=== PATIENT | male | born 1950 | race Caucasian/White ===

== ENCOUNTER 2018-01-26 11:49 | Observation (INO) ==
[2018-01-26] MEDS ORDERED: *HR* FentaNYL (PF) 100 MCG/2 ML VIAL IVP ONE ×2 (12:04→15:54)
--- NOTE | 2018-01-26 12:07 | Emergency Department Note ---
Disposition Clinical Impression: Hip dislocation, left Qualifiers: Encounter type: initial encounter Qualified Code(s): S73.005A - Unspecified dislocation of left hip, initial encounter Disposition: Admitted As Inpatient Condition: Fair Time of Disposition: 14:55 Fall HPI - General Chief Complaint: ED Fall Stated Complaint: L hip pain s/p fall Time Seen by Provider: 01/26/18 11:50 Source: patient, EMS Mode of arrival: EMS Limitations: no limitations Nursing Notes Reviewed: Yes Vital Signs Reviewed: Yes - History of Present Illness HPI Narrative: 67-year-old male presents for evaluation of left hip pain status post fall. Patient appeared to have mechanical fall prior to arrival. Patient describes the fall as he was lifting a heavy concrete block. Patient then states that he landed on his abdomen. Complaining of lateral left hip pain. Pain is worse with movement. Patient states he has had a history of dislocations the left hip in the past. Patient does have a prosthesis in the left hip does placed approximately 7 years ago in [place]. Denies any head injury or loss of conscious. Denies being on any anticoagulation. No chest pain or shortness of breath. No back pain or neck pain. No numbness or tingling of the extremities. - Related Data Home Medications Medication Instructions Recorded Confirmed Aspirin [Adult Aspirin] 81 mg PO DAILY 01/26/18 01/26/18 Atorvastatin [Lipitor] 40 mg PO HS 01/26/18 01/26/18 Glimepiride [Amaryl] 4 mg PO DAILY 01/26/18 01/26/18 Lisinopril [Zestril] 20 mg PO DAILY 01/26/18 01/26/18 Metformin HCl [Glucophage] 1,000 mg PO BID 01/26/18 01/26/18 Selenium 200 mcg PO DAILY 01/26/18 01/26/18 Semaglutide [Ozempic] 0.25 mg SQ QWEEK 01/26/18 01/26/18 Timolol Maleate 0.5% [Timolol 1 drop OP BID 01/26/18 01/26/18 Maleate 0.5%] Allergies Allergy/AdvReac Type Severity Reaction Status Date / Time No Known Allergies Allergy Verified 01/26/18 12:02 All systems ED: reviewed and negative except as stated. Constitutional: Denies: fever Cardiovascular: Denies: chest pain Respiratory: Denies: cough Gastrointestinal: Denies: abdominal pain, nausea, vomiting Musculoskeletal: Denies: back pain, neck pain Fall PMH - Past Medical History Medical history: Reports: asthma, diabetes, hyperlipidemia, hypertension Surgical history: Reports: herniorrhaphy, hip replacement Psychiatric history: Reports: no psych history - Social History Smoking Status: Never smoker Alcohol use: Reports: none Drug use: Reports: none Physical Exam - General Limitations: no limitations General appearance: alert, in no apparent distress, obese - Head Head exam: atraumatic, normocephalic, normal inspection - Eye Eye exam: Present: normal appearance, EOMI - ENT ENT exam: normal exam, mucous membranes moist - Neck Neck exam: Present: normal inspection, trachea midline - Chest Chest inspection: Present: normal inspection, symmetric chest wall rise - Respiratory Respiratory exam: Present: normal lung sounds bilaterally. Absent: respiratory distress - Cardiovascular Cardiovascular exam: Present: regular rate, normal rhythm. Absent: systolic murmur - Abdominal Exam Abdominal exam: Present: soft, Non-Tender - Extremities Exam Extremities exam: Present: normal inspection. Absent: pedal edema - Expanded Lower Extremity Exam Hip/Pelvis exam: Present: normal inspection, tenderness (Left lateral). Absent : full ROM Upper leg exam: Present: normal inspection, full ROM. Absent: tenderness Knee exam: Present: normal inspection, full ROM. Absent: tenderness Lower leg exam: Present: normal inspection, full ROM. Absent: tenderness Ankle exam: Present: normal inspection Neurovascular/Tendon exam: Present: normal capillary refill. Absent: pulse deficit, motor deficit, sensory deficit - Neurological Exam Neurological exam: Present: alert, oriented X3, CN II-XII intact Course Course Narrative: Patient will get imaging of left hip. Symptomatic treatment with pain medications. Disposition pending. - Consultations Consultation #1: Discussed the case with Dr. Ortega who recommended admission to the hospital service with orthopedic consult. Time: 14:40 Vital Signs Temperature 97.7 F 01/26/18 11:58 Pulse Rate 59 01/26/18 11:58 Respiratory Rate 16 01/26/18 11:58 Blood Pressure 121/74 01/26/18 11:58 O2 Sat by Pulse Oximetry 100 01/26/18 11:58 Temperature 97.7 F 01/26/18 11:58 Pulse Rate 57 01/26/18 15:45 Respiratory Rate 16 01/26/18 15:45 Blood Pressure 135/90 01/26/18 15:45 O2 Sat by Pulse Oximetry 100 01/26/18 15:45 Oxygen Delivery Oxygen Delivery [] Nasal Cannula Oxygen Delivery [] Nasal Cannula Oxygen Delivery [] Nasal Cannula Oxygen Delivery [] Nasal Cannula Oxygen Delivery [] Nasal Cannula Oxygen Delivery [] Nasal Cannula Oxygen Delivery [] Nasal Cannula Oxygen Delivery Room Air Procedures - Orthopedic Joint Reduction Joint #1 Consent Obtained: verbal consent, written consent Time Out Performed: Yes Side: left Joint Reduction Location: hip ASA Classification: CLASS III-Severe systemic disease Analgesia: procedural sedation Amount of anesthesic used (mL): 200 Shoulder Technique Used (if applicable): traction/counter-traction Technique used: traction/counter-traction Post-reduction neuro exam: intact Post-reduction vascular: intact Post Reduction X-Ray Obtained: Yes Post Reduction X-Ray Results: not reduced Splint Applied: Yes Patient Tolerated Procedure: well - Procedural Sedation Indication: fracture/dislocation reduction Dietary Status: NPO after Midnight H&P (including ROS) documented in medical record: Yes Previous reaction to sedatives/anesthetics: Yes; explain in comment Dentition: No loose teeth or bridges Airway Assessment: Patient can open mouth completely, TMJ function normal ASA Classification: CLASS III-Severe systemic disease Plan of Care: Pt appropriate candidate for procedure/moderate/conscious sedation , Risks/benefits of procedure/sedation discussed w/ patient/family Preparation: cardiac rehabilitation specialist applied, pulse oximeter, capnometry used, supplemental O2 applied Fentanyl Dose: 100 IV Propofol Dose (mgs): 200 Patient Tolerated Procedure: well Complications: hypoxia Interventions: oxygen applied, airway repositioned Fall - [facility] Narrative Medical decision making narrative: Patient seen and examined. Patient had unsuccessful reduction the left hip. Procedural sedation was adequately obtained in the ED. Multiple attempts were tried and was unsuccessful. Discussed the case with orthopedics who will admit the patient to the hospitalist service with consult. Patient is agreeable this plan of care. Patient was neurovascularly intact following attempted reductions. - Lab Data Lab results reviewed: Yes I reviewed the patient's lab results. Result diagrams: 01/26/18 14:55 01/26/18 14:55 Lab Results 01/26/18 01/26/18 Range/Units 14:55 14:55 WBC 8.9 (4.3-11.1) K/mcL RBC 4.21 (4.19-5.50) M/mcL Hgb 13.2 (12.9-16.9) g/dL Hct 39.8 (37.5-50.1) % MCV 94.5 (83.0-100.0) fL MCH 31.4 (28.0-33.3) pg MCHC 33.2 (31.6-35.5) g/dL RDW 12.7 (11.5-14.5) % Plt Count 217 (140-400) K/mcL MPV 11.2 (9.4-12.4) fL Immature Gran % 0.3 (0-4) % Seg Neutrophils % 70.2 % Lymphocytes % 18.4 % Monocytes % 8.2 % Eosinophils % 2.7 % Basophils % 0.2 % Neutrophils # 6.2 (1.6-8.9) K/mcL Lymphocytes # 1.6 (0.6-4.6) K/mcL Monocytes # 0.7 (0.0-1.3) K/mcL Eosinophils # 0.2 (0.0-0.6) K/mcL Basophils # 0.0 (0.0-0.2) K/mcL Sodium 140 (136-145) mEq/L Potassium 3.7 (3.5-5.1) mEq/L Chloride 108 H (98-107) mEq/L Carbon Dioxide 29 (23-29) mEq/L BUN 10 (8-23) mg/dL Creatinine 0.71 (0.70-1.30) mg/dL Est GFR ( Amer) > 60 (> 60) Est GFR (Non-Af Amer) > 60 (> 60) BUN/Creatinine Ratio 14 (6-26) Glucose 120 H (70-105) mg/dL Calculated Osmolality 290 (280-300) Calcium 8.8 (8.6-10.3) mg/dL - Radiology Data Radiology results reviewed: Yes I reviewed the patient's radiology results. Hip X-Ray 01/26/18 14:22 IMPRESSION: The position of the femoral head component is stable which appears to be dislocated. RECOMMENDATIONS: Unsuccessful reduction. D/ / Zeyad Hassan MD / Zeyad Hassan MD Interpreting Provider: Zeyad Hassan MD - EKG Data EKG attestation: Yes I reviewed and interpreted this EKG. EKG shows normal: sinus rhythm Rate: normal Rhythm: NSR Drummonds/QRS: normal Interpretation: no acute changes, nonspecific ST-T wave changes Juan - Juan Situation: Demographics Background: Presenting Complaint Assessment: Vital Signs, Course and respsone to treatment, Patient/Family Expectation Recommendation: Barrier(s) to disposition, Recommendation based on pending studies, treatments, or consults S.B.ANery Report Given to: Dr. Benton Martinez Repor Time: 14:56
--- NOTE | 2018-01-26 12:12 | Emergency Department Note ---
Disposition Clinical Impression: Hip dislocation, left Qualifiers: Encounter type: initial encounter Qualified Code(s): S73.005A - Unspecified dislocation of left hip, initial encounter Disposition: Admitted As Inpatient Condition: Fair General Adult HPI - General Chief complaint: ED Fall Stated complaint: L hip pain s/p fall Time Seen by Provider: 01/26/18 11:50 Source: patient, EMS Mode of arrival: EMS Limitations: no limitations - History of Present Illness Pain Scale: 2 - Related Data Home Medications Medication Instructions Recorded Confirmed Aspirin [Adult Aspirin] 81 mg PO DAILY 01/26/18 01/26/18 Atorvastatin [Lipitor] 40 mg PO HS 01/26/18 01/26/18 Glimepiride [Amaryl] 4 mg PO DAILY 01/26/18 01/26/18 Lisinopril [Zestril] 20 mg PO DAILY 01/26/18 01/26/18 Metformin HCl [Glucophage] 1,000 mg PO BID 01/26/18 01/26/18 Selenium 200 mcg PO DAILY 01/26/18 01/26/18 Semaglutide [Ozempic] 0.25 mg SQ QWEEK 01/26/18 01/26/18 Timolol Maleate 0.5% [Timolol 1 drop OP BID 01/26/18 01/26/18 Maleate 0.5%] Allergies Allergy/AdvReac Type Severity Reaction Status Date / Time No Known Allergies Allergy Verified 01/26/18 12:02 Constitutional: Denies: fever Cardiovascular: Denies: chest pain Respiratory: Denies: cough Gastrointestinal: Denies: abdominal pain, nausea, vomiting Musculoskeletal: Denies: back pain, neck pain Past Medical History - Past Medical History Medical history: Reports: asthma, diabetes, hyperlipidemia, hypertension Surgical history: Reports: herniorrhaphy, hip replacement Psychiatric history: Reports: no psych history - Social History Smoking Status: Never smoker Smokeless Tobacco Status: No Alcohol use: Reports: none Drug use: Reports: none Physical Exam - General Limitations: no limitations General appearance: alert, in no apparent distress, obese Course Vital Signs Temperature 97.7 F 01/26/18 11:58 Pulse Rate 59 01/26/18 11:58 Respiratory Rate 16 01/26/18 11:58 Blood Pressure 121/74 01/26/18 11:58 O2 Sat by Pulse Oximetry 100 01/26/18 11:58 Temperature 97.7 F 01/26/18 17:44 Pulse Rate 56 01/26/18 17:44 Respiratory Rate 18 01/26/18 17:44 Blood Pressure 182/80 01/26/18 17:44 O2 Sat by Pulse Oximetry 92 01/26/18 17:44 Oxygen Delivery Oxygen Delivery [1426] Nasal Cannula Oxygen Delivery [1421] Nasal Cannula Oxygen Delivery [1416] Nasal Cannula Oxygen Delivery [1411] Nasal Cannula Oxygen Delivery [1406] Nasal Cannula Oxygen Delivery [1401] Nasal Cannula Oxygen Delivery [1357] Nasal Cannula Oxygen Delivery Room Air Medical Decision Making - Lab Data Result diagrams: 01/26/18 14:55 01/26/18 14:55 Lab Results 01/26/18 01/26/18 Range/Units 14:55 14:55 WBC 8.9 (4.3-11.1) K/mcL RBC 4.21 (4.19-5.50) M/mcL Hgb 13.2 (12.9-16.9) g/dL Hct 39.8 (37.5-50.1) % MCV 94.5 (83.0-100.0) fL MCH 31.4 (28.0-33.3) pg MCHC 33.2 (31.6-35.5) g/dL RDW 12.7 (11.5-14.5) % Plt Count 217 (140-400) K/mcL MPV 11.2 (9.4-12.4) fL Immature Gran % 0.3 (0-4) % Seg Neutrophils % 70.2 % Lymphocytes % 18.4 % Monocytes % 8.2 % Eosinophils % 2.7 % Basophils % 0.2 % Neutrophils # 6.2 (1.6-8.9) K/mcL Lymphocytes # 1.6 (0.6-4.6) K/mcL Monocytes # 0.7 (0.0-1.3) K/mcL Eosinophils # 0.2 (0.0-0.6) K/mcL Basophils # 0.0 (0.0-0.2) K/mcL Sodium 140 (136-145) mEq/L Potassium 3.7 (3.5-5.1) mEq/L Chloride 108 H (98-107) mEq/L Carbon Dioxide 29 (23-29) mEq/L BUN 10 (8-23) mg/dL Creatinine 0.71 (0.70-1.30) mg/dL Est GFR ( Amer) > 60 (> 60) Est GFR (Non-Af Amer) > 60 (> 60) BUN/Creatinine Ratio 14 (6-26) Glucose 120 H (70-105) mg/dL Calculated Osmolality 290 (280-300) Calcium 8.8 (8.6-10.3) mg/dL Attestation Statement - Attestation Attestation: I examined this patient and my medical decision-making was reviewed with the Resident Physician. I agree with the documented findings, disposition and treatment plan as described except to the extent set forth below. Patient to the ED with left hip pain. Patient had a mechanical fall after trying to lift some concrete block. Denies being dizzy or syncopal. States he had a prior hip replacement and his dislocated once in the past. On exam is laying on his right side. Pain with movement of the left hip. The leg does not appear shortened. Plan. Imaging pain control. Unsuccessful reduction of the left hip. Attempt 2. No complications. Discussed with orthopedics. Will admit for operative reduction. Hip X-Ray 01/26/18 14:22 IMPRESSION: The position of the femoral head component is stable which appears to be dislocated. RECOMMENDATIONS: Unsuccessful reduction. D/ / 01/26/2018 15:05:10 Zeyad Hassan MD / vinayak Interpreting Provider: Zeyad Hassan MD
[2018-01-26] MEDS ORDERED: *HR* Propofol 500 MG/50 ML BOTTLE IVP ONE (12:42)
[2018-01-26] MEDS ORDERED: 0.9 % Sodium Chloride 1,000 ML IVC ONE (12:43)
[2018-01-26 15:29] LABS: Basophils % 0.2 %; Eosinophils # 0.2 K/mcL (0.0-0.6); Eosinophils % 2.7 %; Hematocrit 39.8 % (37.5-50.1); Hemoglobin 13.2 g/dL (12.9-16.9); Immature Granulocytes % 0.3 % (0-4); Lymphocytes # 1.6 K/mcL (0.6-4.6); Lymphocytes % 18.4 %; Mean Corpuscular HGB Conc 33.2 g/dL (31.6-35.5); Mean Corpuscular Hemoglobin 31.4 pg (28.0-33.3); Mean Corpuscular Volume 94.5 fL (83.0-100.0); Mean Platelet Volume 11.2 fL (9.4-12.4); Monocytes # 0.7 K/mcL (0.0-1.3); Monocytes % 8.2 %; Neutrophils # 6.2 K/mcL (1.6-8.9); Platelet Count 217 K/mcL (140-400); Red Blood Count 4.21 M/mcL (4.19-5.50); Red Cell Distribution Width 12.7 % (11.5-14.5); Segmented Neutrophils % 70.2 %
[2018-01-26 15:46] LABS: BUN/Creatinine Ratio 14 (6-26); Blood Urea Nitrogen 10 mg/dL (8-23); Calcium 8.8 mg/dL (8.6-10.3); Carbon Dioxide 29 mEq/L (23-29); Chloride 108 mEq/L (98-107); Glucose 120 mg/dL (70-105); Osmolality,Calculated 290 (280-300); Potassium 3.7 mEq/L (3.5-5.1); Sodium 140 mEq/L (136-145); eGFR For Non-African Americans > 60 (> 60)
--- NOTE | 2018-01-26 16:41 | Orthopedic Consult Note ---
Date of Encounter: 01/26/18 Time of Encounter: 16:39 Assessment and Plan (1) Hip dislocation, left Current Visit: Yes Status: Acute I did discuss the diagnosis in detail with the patient. The patient does have an anterior hip dislocation on the left. I did discuss treatment options and my recommendation is for closed reduction under a general anesthetic in the operating room. The risks discussed included but were not limited to stiffness , bleeding, infection, blood clots, damage to neurovascular structures, tendons , ligaments, and bone. Also discussed was the risk of continued symptoms and possible need for further procedures. I did discuss the anesthesia risks including stroke, heart attack, and . The patient is aware the risk of possibly needing an open reduction. I did discuss this all with the patient in simple terms and he did wish to proceed and consent was obtained. Postoperatively he will need to follow-up with his primary orthopedist. Qualifiers: Encounter type: initial encounter Qualified Code(s): S73.005A - Unspecified dislocation of left hip, initial encounter History of Present Illness HPI: Mr. Browning is a 67 year old male who was currently admitted to the hospitalist. 7 years ago he had a left total hip arthroplasty by Dr. Benavides at [place] in [facility]. 2 years later he did have a dislocation which was treated with a closed reduction. The patient has not had any issues or prodromal symptoms. He says he was lifting concrete and twisted wrong and felt pain in the left hip. X-rays confirmed a dislocation of the left hip. A closed reduction was attempted in the emergency department which was unsuccessful. He was therefore admitted for closed reduction in the operating room. The patient complains of isolated pain to the left hip and groin which is sharp and achy in nature. No associated numbness, tingling, or other signs or symptoms. Pain is worse with movement of the left thigh and better with rest. No other associated signs or symptoms or modifying factors. Past Med Surg Social Fam HX - Past Medical History Medical history: asthma, diabetes, hyperlipidemia, hypertension Additional medical history: inguinal hernia repair,obesity,reactive airway disease,kidney stones Psychiatric history: no psych history - Past Surgical History Surgical History: herniorrhaphy, hip replacement Additional surgical history: kidney stones,carpal tunnel, bilateral hip replacement - Social History Smoking Status: Never smoker Smokeless Tobacco Status: No Alcohol use: none Drug use: none Medications and Allergies Aspirin [Adult Aspirin] 81 mg PO DAILY 01/26/18 [History] Atorvastatin [Lipitor] 40 mg PO HS 01/26/18 [History] Glimepiride [Amaryl] 4 mg PO DAILY 01/26/18 [History] Lisinopril [Zestril] 20 mg PO DAILY 01/26/18 [History] Metformin HCl [Glucophage] 1,000 mg PO BID 01/26/18 [History] Selenium 200 mcg PO DAILY 01/26/18 [History] Semaglutide [Ozempic] 0.25 mg SQ QWEEK 01/26/18 [History] Timolol Maleate 0.5% [Timolol Maleate 0.5%] 1 drop OP BID 01/26/18 [History] 3 Allergy/AdvReac Type Severity Reaction Status Date / Time No Known Allergies Allergy Verified 01/26/18 12:02 All Systems Reviewed: Constitutional and musculoskeletal systems were reviewed and are negative unless otherwise stated in history of present illness. Physical Exam - Constitutional Vitals: Temp Pulse Resp BP Pulse Ox 97.7 F 57 16 135/90 100 01/26/18 11:58 01/26/18 15:45 01/26/18 15:45 01/26/18 15:45 01/26/18 15:45 Constitutional -Vitals reviewed -The patient is well developed and well nourished. -Mood is pleasant. -The patient is well groomed. Psychiatric -The patient is fully alert and oriented x 3. Respiratory: -Respiratory effort normal Abdomen: -Soft abdomen -Non tender -Non distended: Left upper extremity: -No deformities. The overlying skin is intact. No obvious signs of acute trauma. -No tenderness to palpation throughout. -No significant pain with passive motion of the shoulder, elbow, wrist, and fingers within the limits of the bed. -Able to make an "OK" sign, cross the index and long fingers, and extend the thumb. -Sensation grossly intact to light touch throughout the median, radial, and ulnar distributions. -Radial pulse is present; Fingers have good capillary refill. Right upper extremity: -No deformities. The overlying skin is intact. No obvious signs of acute trauma. -No tenderness to palpation throughout. -No significant pain with passive motion of the shoulder, elbow, wrist, and fingers within the limits of the bed. -Able to make an "OK" sign, cross the index and long fingers, and extend the thumb. -Sensation grossly intact to light touch throughout the median, radial, and ulnar distributions. -Radial pulse is present; Fingers have good capillary refill. Left lower extremity: -The extremity is shortened and externally rotated. The overlying skin is intact. -There is tenderness in the groin region as well as the proximal lateral thigh. -I did not range the hip due to the known fracture. -No tenderness along the distal thigh, leg, ankle, foot, or toes. -Able to dorsiflex and plantarflex the ankle and toes. -Sensation is grossly intact to light touch throughout the sural, saphenous, superficial peroneal, and deep peroneal distributions. -Toes have good capillary refill. Right lower extremity: -No deformities. The overlying skin is intact. No obvious signs of acute trauma. -No tenderness to palpation throughout. -No pain with passive motion of the hip, knee, ankle, and toes within the limits of the bed. -No pain with axial loading of the thigh. -Able to dorsiflex and plantarflex the ankle and toes. -Sensation is grossly intact to light touch throughout the sural, saphenous, superficial peroneal, and deep peroneal distributions. -Toes have good capillary refill. Diagnostic Imaging: I did personally review and interpret x-rays of the left hip which show an anterior dislocation. Results - Labs Result Diagrams: 01/26/18 14:55 01/26/18 14:55 Labs: Abnormal lab results Chloride 108 mEq/L (98-107) H 01/26/18 14:55 Glucose 120 mg/dL (70-105) H 01/26/18 14:55 All other labs normal. Consult Discharge Plan - Plan Referrals: Davina Dwyer, DEAN [Primary Care Provider] -
[2018-01-26] MEDS ORDERED: Naloxone 0.4 MG/ML INJ IVP PRN ×2 (17:08→19:49)
[2018-01-26] MEDS ORDERED: *HR* OxyCODONE/APAP 5/325 TABLET PO PRN ×2 (17:14→19:49)
[2018-01-26] MEDS ORDERED: D5% in Water 1,000 ML IVC PRN ×2 (17:16→19:49)
[2018-01-26] MEDS ORDERED: *HR* Dextrose 50 % in Water (Syg) 50 ML SYRINGE IVP PRN ×2 (17:16→19:49)
[2018-01-26] MEDS ORDERED: Dextrose Gel 15 GM/37.5 ML TUBE PO PRN ×4 (17:16→19:49)
[2018-01-26] MEDS ORDERED: Dexamethasone 4 MG/ML VIAL ONE (17:22)
[2018-01-26] MEDS ORDERED: Ondansetron 4 MG/2 ML VIAL ONE (17:22)
[2018-01-26] MEDS ORDERED: Lidocaine -MPF 2% 2 ML VIAL ONE (17:22)
[2018-01-26] MEDS ORDERED: *HR* Propofol 200 MG/20 ML VIAL IVP ONE (17:22)
--- NOTE | 2018-01-26 17:34 | Anesthesia Evaluation PreOp ---
Date of Encounter: 01/26/18 Time of Encounter: 17:34 - Past History Planned Operation: Closed reduction L-Hip Cardiac History: HTN, Hyperlipidemia Pulmonary History: Asthma Other Medical History: Renal (Hx kidney stones,), Diabetes Type II, Other ( Glaucoma) Anesthesia History: No Prior Anesthetic Complications, Past Anesthesia (L-Total Hip 2011, Inguinal Hernia Repair, CTR, R-Hip replacement) Alcohol Use: none Drug use: none Medications and Allergies Aspirin [Adult Aspirin] 81 mg PO DAILY 01/26/18 [History] Atorvastatin [Lipitor] 40 mg PO HS 01/26/18 [History] Glimepiride [Amaryl] 4 mg PO DAILY 01/26/18 [History] Lisinopril [Zestril] 20 mg PO DAILY 01/26/18 [History] Metformin HCl [Glucophage] 1,000 mg PO BID 01/26/18 [History] Selenium 200 mcg PO DAILY 01/26/18 [History] Semaglutide [Ozempic] 0.25 mg SQ QWEEK 01/26/18 [History] Timolol Maleate 0.5% [Timolol Maleate 0.5%] 1 drop OP BID 01/26/18 [History] 3 Allergy/AdvReac Type Severity Reaction Status Date / Time No Known Allergies Allergy Verified 01/26/18 12:02 - Meds/Allergy Pre-op Review Medications Reviewed: Yes Allergies Reviewed: Yes Beta Blockers on Current Med List: Yes (Timolol ophthalmic) Anesthesia Results - Labs 01/26/18 14:55 01/26/18 14:55 Laboratory Results Impressions Hip X-Ray 01/26/18 14:22 IMPRESSION: The position of the femoral head component is stable which appears to be dislocated. RECOMMENDATIONS: Unsuccessful reduction. D/ / 01/26/2018 15:05:10 Zeyad Hassan MD / vinayak Interpreting Provider: Zeyad Hassan MD Laboratory Tests 11/02/17 01/26/18 16:28 14:55 Est GFR (Non-Af Amer) > 60 Est Mean Plasma Glucose 189 Hemoglobin A1c 8.2 H Calcium 8.8 Anesthesia Exam Vital Signs/O2 Sat/Glucose, Most Current Pulse Pulse Pulse Pulse Pulse Pulse Pulse 01/26/18 15:45 57 09/07/18 15:15 57 01/26/18 14:45 54 01/26/18 14:31 61 01/26/18 13:58 63 49 53 56 59 56 Pulse Resp Resp Resp Resp Resp Resp 01/26/18 15:45 16 01/26/18 15:15 16 01/26/18 14:45 16 01/26/18 14:31 18 01/26/18 13:58 65 18 10 9 10 14 Resp Resp BP BP BP BP BP 01/26/18 15:45 135/90 01/26/18 15:15 147/88 01/26/18 14:45 146/73 01/26/18 14:31 103/83 01/26/18 13:58 16 16 188/86 153/91 173/106 181/104 BP BP Pulse Ox 01/26/18 15:45 100 01/26/18 15:15 99 01/26/18 14:45 100 01/26/18 14:31 100 01/26/18 13:58 163/87 115/91 Height: 5'11" Weight: 290# BMI = 40 NPO (# of Hours): MNOc - HEENT Pupil (Motor): Pupils equal, EOMI Mallampati: III Teeth: Normal Oral Opening: Greater than 3 - BLUEPRINT ENGINEER LOC: Oriented BLUEPRINT ENGINEER Motor: Normal RUE, Normal LUE, Normal RLE, Normal LLE, Normal Face BLUEPRINT ENGINEER Sensory: Normal: RUE, LUE, RLE, LLE, Face - Cardiac Rhythm: Regular Murmur: None - Pulmonary Breath Sounds: bilateral Clear Respiratory Effort: Symmetrical Anesthesia Assess/Plan ASA Score: 3, E Modified Evelyn Scale for Level of Consciousness: Cooperative, oriented, and tranquil Anesthetic Plan: General Monitoring Plan: Standard Monitors Recovery Plan: PACU Anes Supervising Prov Stmt: PT seen/evaluated, R&B Discussed, questions answered and consent obtained. Willie Cardenas MD
--- NOTE | 2018-01-26 17:54 | Internal Med History&Physical ---
<Siddhartha Calles - Last Filed: 01/26/18 18:09> Date of Encounter: 01/26/18 Time of Encounter: 17:00 Internal Medicine - H&P: HPI Chief complaint: L hip pain Admitted From: Emergency Dept Plans for Post Hospital Care: Home History of present illness: Mr. Browning is a 67 year old male who presented to the ED 6 hours ago after sustaining a fall prior to arrival while carrying a concrete block. He denies preceding dizziness, chest pain, shortness of breath, lightheadedness, syncope. Past medical history is significant for type 2 diabetes, HLD, HTN, s/p hip replacement 7 years ago, patient reports due to arthritis of the joint. He states he experienced this before 2 years ago. ECG performed in the ED shows NSR without st elevation/depression. XR hip shows hip dislocation anteriorly. Dr. Sutherland was consulted by the ED with plan for closed reduction under general anesthesia later today. He is not on anticoagulation, he denies shortness of breath or chest pain with exertion or at rest. Past Med Surg Social Fam HX - Past Medical History Medical history: asthma, diabetes, hyperlipidemia, hypertension Additional medical history: inguinal hernia repair,obesity,reactive airway disease,kidney stones Psychiatric history: no psych history - Past Surgical History Surgical History: herniorrhaphy, hip replacement Additional surgical history: kidney stones,carpal tunnel, bilateral hip replacement - Social History Smoking Status: Never smoker Smokeless Tobacco Status: No Alcohol use: none Drug use: none Internal Medicine - H&P: Meds Aspirin [Adult Aspirin] 81 mg PO DAILY 01/26/18 [History] Atorvastatin [Lipitor] 40 mg PO HS 01/26/18 [History] Glimepiride [Amaryl] 4 mg PO DAILY 01/26/18 [History] Lisinopril [Zestril] 20 mg PO DAILY 01/26/18 [History] Metformin HCl [Glucophage] 1,000 mg PO BID 01/26/18 [History] Selenium 200 mcg PO DAILY 01/26/18 [History] Semaglutide [Ozempic] 0.25 mg SQ QWEEK 01/26/18 [History] Timolol Maleate 0.5% [Timolol Maleate 0.5%] 1 drop OP BID 01/26/18 [History] 3 Allergy/AdvReac Type Severity Reaction Status Date / Time No Known Allergies Allergy Verified 01/26/18 12:02 All Systems PM: A 10-system review of systems was performed and is negative for pertinent findings except as documented above in the HPI. - Constitutional Constitutional: no fever(s) - EENT Eyes: no blurry vision Nose, mouth and throat: no neck pain - Cardiovascular Cardiovascular ROS IM: no chest pain, no irregular heart rhythm, no lightheadedness, no palpitations, no syncope - Respiratory Respiratory: no dyspnea on exertion, no wheezing - Gastrointestinal Gastrointestinal: no abdominal pain - Musculoskeletal Musculoskeletal ROS IM: no numbness Additional comments: L hip pain - Neurological Neurological ROS: no confusion, no disequilibrium, no numbness, no vertigo - Psychiatric Psychiatric: no confusion - Constitutional Vitals: Temp Pulse Resp BP Pulse Ox 97.7 F 57 16 135/90 100 01/26/18 11:58 01/26/18 15:45 01/26/18 15:45 01/26/18 15:45 01/26/18 15:45 General appearance: Present: A&O X 3, morbidly obese Exam: . - Head Head exam: Present: atraumatic, normocephalic - Eye Eye exam: Present: EOMI, normal appearance, conjuntiva pink, sclera anicteric - Neck Neck exam general surgery: Present: supple, trachea midline. Absent: lymphadenopathy - Respiratory Respiratory exam: Present: CTAB. Absent: accessory muscle use, rales, rhonchi, wheezes - Cardiovascular Cardiovascular exam: Present: RRR, +S1, +S2. Absent: diastolic murmur, gallop, rubs, systolic murmur - GI/Abdominal GI/Abdominal exam: Present: normal bowel sounds, soft, no peritoneal signs. Absent: distended, tenderness - Extremities Exam Extremities exam: Present: warm, radial pulses palpable and symmetrical. Absent : calf tenderness, cyanotic, pedal edema Additional comments: dorsalis pedis pulses 2/4 bilaterally; normal sensorium of lower extremities, dorsiflex/plantarflexion intact - Neurological Exam Neurological exam: Present: CN II-XII intact, oriented X3, no focal deficits. Absent: pronater drift, facial droop, speech deficit - Skin Skin exam: Present: dry, intact Internal Med - H&P Results - Labs CBC & Chem 7: 01/26/18 14:55 01/26/18 14:55 - Assessment and plan (1) Hip dislocation, left Current Visit: Yes Status: Acute Assessment and plan: Anterior dislocation of L hip as seen on XR L hip on exam is neurovascularly intact, dorsalis pedis pulse 2/4; no cyanosis, no paresthesia, able to move toes/dorsiflex/plantarflex Unable to reduce hip in ED Consultation with ortho, with plan for closed reduction under general anesthesia this evening Admit to medsurg/observation Patient likely classified as ASA-3 based on comorbidities of morbid obesity, HTN , DM2, HLD; no hx WI, reaction to anesthesia. Qualifiers: Encounter type: initial encounter Qualified Code(s): S73.005A - Unspecified dislocation of left hip, initial encounter (2) Type 2 diabetes mellitus Current Visit: Yes Status: Acute Assessment and plan: Hgb A1c 8.2% October 2017 home med - metformin and glp-1 agonist; will initiate low-dose SSI this admission Qualifiers: Diabetes mellitus prison insulin use: without prison use Diabetes mellitus complication status: with unspecified complications Qualified Code(s) : E11.8 - Type 2 diabetes mellitus with unspecified complications (3) Hypertension Current Visit: Yes Status: Acute Assessment and plan: Normotensive Resuming home Lisinopril in tomorrow AM Qualifiers: Hypertension type: essential hypertension Qualified Code(s): I10 - Essential (primary) hypertension (4) Hyperlipidemia Current Visit: Yes Status: Acute Assessment and plan: LDL July Resuming Lipitor tomorrow AM Qualifiers: Hyperlipidemia type: unspecified Qualified Code(s): E78.5 - Hyperlipidemia , unspecified (5) DVT prophylaxis Current Visit: Yes Status: Acute Assessment and plan: SQ heparin q12h - Time Spent With Patient Total time spent is greater than 50% in coordination of care (as documented) at patient's floor/unit and/or counseling patient: <Farrah Jerry - Last Filed: 01/26/18 18:15> Date of Encounter: 01/26/18 Time of Encounter: 18:00 Internal Medicine - H&P: HPI History of present illness: Mr. Browning is a 67 year old male All Systems PM: A 10-system review of systems was performed and is negative for pertinent findings except as documented above in the HPI. - Constitutional Vitals: Temp Pulse Resp BP Pulse Ox 97.7 F 56 18 182/80 92 01/26/18 17:44 01/26/18 17:44 01/26/18 17:44 01/26/18 17:44 01/26/18 17:44 Internal Med - H&P Results - Labs CBC & Chem 7: 01/26/18 14:55 01/26/18 14:55 - Time Spent With Patient Total time spent is greater than 50% in coordination of care (as documented) at patient's floor/unit and/or counseling patient: - Attending Attestation I saw evaluated and examined this patient and my medical decision-making was reviewed with the Resident Physician, Siddhartha Calles. I agree with the documented findings, disposition and treatment plan as described except to any changes set forth below. We independently had [id number] contact with the patient. 67-year-old male patient with past medical history of diabetes, hypertension was brought to the ER after he fell and injured his left hip. Patient has previously had left hip arthroplasty. On arrival to the ER, he was evaluated by the ER physician was and found to have a dislocated left hi closed hip reduction was attempted in the ER but was unsuccessful. As such patient admitted for orthopedic consultation closed reduction in the OR under general anesthesia. Patient denies any chest pain or palpitations. Denies any shortness of breath. At baseline he is able to ambulate a flight of stairs easily without any discomfort shortness of breath. He denies any palpitations. No abdominal pain and nausea or vomiting. General: Patient is alert, no acute distress, oriented x 3 Head: atraumatic, normocephalic, Eye: normal appearance, PERRL, no scleral icterus, no conjunctival injection Neck: normal inspection, trachea midline, full ROM, Chest: normal inspection, symmetric chest rise Respiratory: Good respiratory effort. Normal breath sounds. No wheezing or crackles. Cardiovascular: Regular rate and rhythm. s1 and s2 No clicks, rubs, gallops, or murmurs. No pedal edema Abdomen: Abdomen is soft, nontender. Bowel sounds are present Musculoskeletal: Left hip tenderness. Skin: warm, dry, intact. Neuro: Alert oriented x 3 normal cranial nerves, no focal deficits Psych: Patient's affect is normal Labs show WBC of 8.9, BUN of 10, creatinine 0.7, platelets of 217, hemoglobin of 13.2. X-ray of the left hip shows anterior dislocation of left hip arthroplasty. Left hip dislocation: Orthopedics consulted. Supportive care. Pain control. Diabetes mellitus type 2: Monitor blood sugars. Sliding scale insulin. Diabetic diet when patient is able to eat. Preop clearance: Patient appears to have risk factors of diabetes and obesity. He does not have any cardiac symptoms. At intermediate risk for cardiac complications from anesthesia. At this time medically cleared for surgery. Essential hypertension: Blood pressure was elevated this afternoon likely due to pain. Will continue home medications and monitor blood pressure closely. DVT prophylaxis with subcutaneous heparin postsurgery.
[2018-01-26] MEDS ORDERED: *HR* Heparin 5,000 UNIT/ML VIAL SQ SCH (18:00)
[2018-01-26] MEDS ORDERED: *HR* FentaNYL (PF) 100 MCG/2 ML VIAL ONE (18:32)
[2018-01-26] MEDS ORDERED: *HR* Succinylcholine 200 MG/10 ML VIAL IVP ONE (18:33)
[2018-01-26] MEDS ORDERED: Lidocaine -MPF 4% 5 ML AMPUL ONE (18:34)
[2018-01-26] MEDS ORDERED: SUGAMMADEX SODIUM 500 MG/5 ML VIAL IV ONE (19:00)
--- NOTE | 2018-01-26 19:28 | Orthopedic Operative Note ---
Date of procedure: 01/26/18 Procedure: OPERATIVE REPORT SURGEON: Conner Sutherland MD PREOPERATIVE DIAGNOSIS: Left prosthetic hip dislocation POSTOPERATIVE DIAGNOSIS: Left prosthetic hip dislocation PROCEDURE: Closed reduction of the left hip ANESTHESIA: Gen. anesthesia PREOPERATIVE NOTE AND INDICATIONS: This patient is a 67-year-old male with a prosthetic left hip dislocation. Recommendation was for the above procedure to reduce and stabilize the hip. The surgical plan was discussed with the patient. The risks, benefits, alternatives, and potential complications of this procedure were discussed with the patient including injury to veins, arteries, nerves, tendons, ligaments, and bone. Also discussed were the risks of infection, bleeding, pain, blood clots, the possible need for a blood transfusion, the possible need for further procedures, heart attack, stroke, and . The patient is aware the risk of needing an open reduction. All of this was explained in simple terms, and the patient verbalized understanding and wished to proceed. Consent was given to proceed with surgery. PROCEDURE: The patient was seen in the preoperative holding area where the identify and the consent were confirmed. The left hip was marked. Final questions were answered. The patient was brought back to the operating room and placed supine on the operating room table. A huddle was performed with the patient and all vital surgical team members confirming patient identity, the correct procedure, and the correct operative site. Gen. anesthesia was administered. The operative extremity was prepped and draped in the usual sterile fashion. A surgical time out was performed immediately preceding the reduction with all personnel in the operating room to confirm patient identity, the correct operative site and extremity, correct radiographic studies, availability of appropriate surgical equipment, and agreement on the planned procedure. After administration of anesthesia in-line traction was placed on the leg as well as external rotation, and once the leg was out to length leg was internally rotated and a downward force placed on the femoral head which reduced the hip with an audible clunk. X-rays confirmed good reduction. A knee immobilizer and abduction pillow was placed. The instrument, sponge, and needle counts were correct after wound closure. POST OPERATIVE PLAN: Touchdown weightbearing on the left lower extremity. Abduction pillow while in bed. Knee immobilizer at all times. Follow-up with the patient's primary orthopedist within the next week. Was there an marketing administrative assistant present: No Estimated blood loss (cc): 0
--- NOTE | 2018-01-26 19:32 | Orthopedics Progress Note ---
Date of Encounter: 01/26/18 Time of Encounter: 19:30 - Assessment and Plan (1) Hip dislocation, left Current Visit: Yes Status: Acute Qualifiers: Encounter type: initial encounter Qualified Code(s): S73.005A - Unspecified dislocation of left hip, initial encounter Subjective Interval history: S: The patient is seen in the PACU and is very comfortable. Minimal pain. O: Afebrile and vital signs are stable Left lower extremity is in an abduction pillow and knee immobilizer Neurovascularly intact distally A: Post successful closed reduction in the operating room P: Touchdown weightbearing on the left lower extremity. Hip abduction pillow. Knee immobilizer. I instructed him to call his orthopedic surgeon, Dr Benavides, Monday to schedule an appointment for next week. Orthopedically stable for discharge. Objective Vital signs: Vital Signs Temp Pulse Resp BP Pulse Ox 01/26/18 19:28 71 14 142/88 97 01/26/18 19:18 75 16 120/78 99 01/26/18 19:08 97.3 F L 72 14 125/76 99 01/26/18 17:44 97.7 F 56 18 182/80 92 01/26/18 15:45 57 16 135/90 100 01/26/18 15:15 57 16 147/88 99 Intake and Output 01/26/18 01/26/18 01/26/18 07:59 15:59 23:59 Output Total 0 / 0 Balance 0 / 0 Output: Urine 0 / 0 Estimated Blood Loss 0 / 0 - Labs CBC & BMP: 01/26/18 14:55 01/26/18 14:55 Labs: Abnormal lab results Chloride 108 mEq/L (98-107) H 01/26/18 14:55 Glucose 120 mg/dL (70-105) H 01/26/18 14:55 Consult Discharge Plan - Plan Referrals: Davina Dwyer, CONSTRUCTION PERSON [Primary Care Provider] -
--- NOTE | 2018-01-26 19:37 | Anesthesia Evaluation Post Op ---
Date of Encounter: 01/26/18 Time of Encounter: 19:37 - Vital Signs Vital Signs: Vital Signs/O2 Sat, Most Current Temp Pulse Resp BP Pulse Ox 97.3 F L 71 14 142/88 97 01/26/18 19:08 01/26/18 19:28 01/26/18 19:28 01/26/18 19:28 01/26/18 19:28 - Lungs Lungs: Clear Ascult./Percussion - Airway Airway: Non-obstructed - Cardiovascular Regular Rate - Mental Status Mental Status: Alert & Oriented, Answers Appropriately - Pain Pain Scale: 0 Pain Scale used: Numeric (1 - 10) - Nausea Vomiting Nausea Vomiting: Not Present - Hydration Hydration: Ice chips, Has not voided - Discharge PostOp Status: Transfer Patient to floor
[2018-01-26] MEDS ORDERED: (Semaglutide [Ozempic] 0.25 MG) SQ SCH (19:49)
[2018-01-26 20:28] VITALS: BP 158/67
[2018-01-26] MEDS ORDERED: *HR* Metformin 500 MG TABLET PO SCH (21:00)
[2018-01-26] MEDS ORDERED: Insulin LISPRO 300 UNITS/3 ML VIAL SQ SCH ×2 (21:00)
[2018-01-27] MEDS ORDERED: *HR* Heparin 5,000 UNIT/ML VIAL SQ SCH (06:00)
[2018-01-27] MEDS ORDERED: Insulin LISPRO 300 UNITS/3 ML VIAL SQ SCH ×2 (07:30)
[2018-01-27] MEDS ORDERED: SELENIUM 200 MCG PO SCH (09:00)
[2018-01-27] MEDS ORDERED: Lisinopril 20 MG TABLET PO SCH ×2 (09:00)
[2018-01-27] MEDS ORDERED: *HR* Glimepiride 4 MG TABLET PO SCH (09:00)
[2018-01-27] MEDS ORDERED: Aspirin Enteric Coated 81 MG Tablet PO SCH ×2 (09:00)
--- NOTE | 2018-01-29 16:52 | Electrocardiograph Report ---
[place] [id number] Test Date: 2018-01-26 Pat Name: Dmitry Browning Department: [id number] Room: 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
--- NOTE | 2018-01-31 11:14 | Electrocardiograph Report ---
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
== END 2018-01-26 20:44 | disposition home or self-care (01) ==
LOC: 3NENU 11:49 → EMEROOARM 11:49 → 3NENU 17:26
PROVIDERS: ADMIT Internal Medicine; ATTEND Internal Medicine